=== PATIENT | male | born 1995 | race Two or more races ===

== ENCOUNTER 2021-04-06 09:12 | Emergency (ER) | payer OTHER ==
[~2021-04-06] VITALS: Ht 188 cm; Wt 111.1 kg
[2021-04-06] MEDS ORDERED: IBUPROFEN 800 MG TAB PO ONE (10:45)
[2021-04-06 10:56] VITALS: BP 145/75
== END 2021-04-06 11:09 | disposition home or self-care (01) ==
LOC: ER 09:12
DX: S02.2XXA Fracture of nasal bones, initial encounter for closed fracture (principal); S01.23XA Puncture wound without foreign body of nose, initial encounter; W22.8XXA Striking against or struck by other objects, initial encounter; Y93.89 Activity, other specified; Y92.89 Other specified places as the place of occurrence of the external cause; Y99.8 Other external cause status
CPT/HCPCS: 70160